=== PATIENT | female | born 1950 | race Caucasian/White ===

== ENCOUNTER 2018-05-09 20:16 | Emergency (ER) | payer MEDICARE ==
[2018-05-09 20:56] VITALS: RESP 18; TEMP 99
--- NOTE | 2018-05-09 21:33 | XR ---
EXAMINATION TYPE: XR shoulder complete RT DATE OF EXAM: 05/09/2018 CLINICAL HISTORY: Right shoulder pain after fall injury. TECHNIQUE: Three views of the right shoulder are obtained. COMPARISON: None. FINDINGS: Demineralization is present. There is age indeterminate displaced fracture middle one third of right clavicle. There is 2.6 cm overlap without callus formation suggesting acute fracture. Acrom ioclavicular joint is maintained with mild narrowing. Glenohumeral joint is preserved. The visualized ribs are intact and unremarkable. Stimulator device overlies right chest ascending right neck. IMPRESSION: There is age indeterminate but suspected acute displaced fracture through the middle one third of right clavicle. Correlate clinically with point tenderness. (Initial encounter closed type posttraumatic fracture)
[2018-05-09] MEDS ORDERED: MORPHINE SULFATE 4 MG/ML SYRINGE IM STA (21:47)
[2018-05-09] MEDS ORDERED: ACET/COD 300 MG/30 MG STARTER PACK 6 TAB BTL PO STA (21:47)
--- NOTE | 2018-05-09 21:49 | ED ---
General Adult HPI <Von Amato - Last Filed: 05/09/18 21:49> - General Source: patient, RN notes reviewed, old records reviewed Mode of arrival: ambulatory Limitations: no limitations <Abhijeet Nash - Last Filed: 05/09/18 23:00> - General Chief complaint: Fall Stated complaint: Fall, poss broken shoulder Time Seen by Provider: 05/09/18 21:13 - History of Present Illness Initial comments: 67-year-old female patient with past medical history of Parkinson's disease presents to ED after sustaining a mechanical fall today. Patient states that she was walking, loss of balance and fell on her right side. Patient reports that she has a shuffling gait that she has poor balance. Patient denies any trauma to head or neck. Patient primary complaint is right shoulder pain. Patient believes that she fractured her clavicle. Patient denies any loss of consciousness. Patient denies any some blood thinners. Patient denies any other complaints. Patient denies chest pain, shortness breath, abdominal pain. Systemic: Pt denies fatigue, fever/chills, rash. Pt denies weakness, night sweats, weight loss. Neuro: Pt denies headache, visual disturbances, syncope or pre-syncope. HEENT: Pt denies ocular discharge or irritation, otalgia, rhinorrhea, pharyngitis or notable lymphadenopathy. Cardiopulmonary: Pt denies chest pain, SOB, heart palpitations, dyspnea on exertion. Abdominal/GI: Pt denies abdominal pain, n/v/d. : Pt denies dysuria, burning w/ urination, frequency/urgency. Denies new onset urinary or bowel incontinence. MSK: Pt denies loss of strength or function in extremities. Neuro: Pt denies new onset weakness, paresthesias. (Abhijeet Nash) - Related Data Allergies Allergy/AdvReac Type Severity Reaction Status Date / Time acetaminophen [From Vicodin] Allergy Vomiting Verified 05/09/18 20:56 hydrocodone [From Vicodin] Allergy Vomiting Verified 05/09/18 20:56 tape Allergy Rash/Hives Uncoded 05/09/18 20:56 Review of Systems ROS Other: All systems not noted in ROS Statement are negative. <Von Amato - Last Filed: 05/09/18 21:49> ROS Other: All systems not noted in ROS Statement are negative. <Abhijeet Nash - Last Filed: 05/09/18 23:00> ROS Statement: Those systems with pertinent positive or pertinent negative responses have been documented in the HPI. Past Medical History Past Medical History: Hypertension Additional Past Medical History / Comment(s): Parkinson. Broken left elbow and right arm. History of Any Multi-Drug Resistant Organisms: None Reported Additional Past Surgical History / Comment(s): Deep brain stiumulation. Toe removal. Past Psychological History: No Psychological Hx Reported Smoking Status: Never smoker Past Alcohol Use History: None Reported Past Drug Use History: None Reported <Abhijeet Nash - Last Filed: 05/09/18 23:00> General Exam <Von Amato - Last Filed: 05/09/18 21:49> Limitations: no limitations <Abhijeet Nash - Last Filed: 05/09/18 23:00> - General Exam Comments Initial Comments: Constitutional: NAD, AOX3, Pt has pleasant affect. HEENT: NC/AT, trachea midline, neck supple, no lymphadenopathy. Posterior pharynx non erythematous, without exudates. External ears appear normal, without discharge. Mucous membranes moist. Eyes PERRLA, EOM intact. There is no scleral icterus. No pallor noted. Cardiopulmonary: RRR, no murmurs, rubs or gallops, no JVD noted. Lungs CTAB in anterior and posterior swartz. No peripheral edema. Abdominal exam: Abdomen soft and non-distended. Abdomen non-tender to palpation in all 4 quadrants. Bowel sounds active in LLQ. No hepatosplenomegaly. No ecchymosis Neuro: CN II-XII intact. No nuchal rigidity. No cervical spinal tenderness. MSK: Mild defect noted in right clavicle. No tenting. Patient has pain and tenderness to right clavicle. Patient limited range of motion right upper extremity secondary to pain. Patient neurovascularly intact, radial pulse +2. Sensation intact. No posterior calf tenderness bilaterally, homans sign negative bilaterally. Posterior tibialis and radial pulse +2 bilaterally. Sensation intact in upper and lower extremities. Full active ROM in upper and lower extremities, 5/5 stregnth. (Abhijeet Nash) Course <LmVon - Last Filed: 05/09/18 21:49> <Abhijeet Nash - Last Filed: 05/09/18 23:00> Vital Signs 05/09/18 20:51 Temperature 99.0 F Pulse Rate 85 Respiratory 18 Rate Blood Pressure 161/53 O2 Sat by Pulse 97 Oximetry - Reevaluation(s) Reevaluation #1: 05/09/18 21:49 PA supervision: I proceeded [id number] evaluation the patient she did fall and sustained a right clavicle fracture. She states she was making cookies at the time. She complains of localized pain to the area. I did review the imaging shows no evidence of a mid right clavicle fracture. Is no sensory motor or vascular deficits however. Patient will be discharged with sling and do agree with the assessment and plan. She will follow-up with her doctor and/ or orthopedics. (Von Amato) Medical Decision Making <Von Amato - Last Filed: 05/09/18 21:49> <Abhijeet Nash - Last Filed: 05/09/18 23:00> - Medical Decision Making 67-year-old female patient with past medical history of Parkinson's disease presents to ED after sustaining a mechanical fall today. Patient states that she was walking, loss of balance and fell on her right side. Patient reports that she has a shuffling gait that she has poor balance. Patient denies any trauma to head or neck. Patient primary complaint is right shoulder pain. Patient believes that she fractured her clavicle. Patient denies any loss of consciousness. Patient denies any some blood thinners. Patient denies any other complaints. Pt VSS. Physical exam displayed: normal neurological exam, mild defect noted in right clavicle. No tenting. Patient has pain and tenderness to right clavicle. Patient limited range of motion right upper extremity secondary to pain. Patient neurovascularly intact, radial pulse +2. Sensation intact. Plain films displayed a fracture to one third of right clavicle. Patient placed in arm sling. Patient to follow with orthopedic surgeon tomorrow. Patient to return to ED if new s/sx develop. Patient not driving home. Case discussed in depth with an patient seen by Dr. Amato. (Abhijeet Nash) Disposition <Von Amato - Last Filed: 05/09/18 21:49> Is patient prescribed a controlled substance at d/c from ED?: No Time of Disposition: 21:49 <Abhijeet Nash - Last Filed: 05/09/18 23:00> Clinical Impression: Clavicle fracture Disposition: HOME SELF-CARE Condition: Stable Instructions (If sedation given, give patient instructions): Clavicle Fracture (ED), Fall Prevention for Children (ED) Additional Instructions: Patient to adhere to previously discussed treatment plan and will take medication(s) as directed. Patient to follow up with PCP in 1-2 days. Patient to return to ED if symptoms do not improve. Please call Dr. Stallworth tomorrow Please wear sling until orthopedic follow up Referrals: Massiel Rios MD [Primary Care Provider] - 1-2 days Leighton Stallworth MD [STAFF PHYSICIAN] - 1-2 days
[2018-05-09 23:24] VITALS: BP 178/81; PULSE 81
== END 2018-05-09 22:40 | disposition home or self-care (01) ==
LOC: EC 20:16
DX: S42.001A Fracture of unspecified part of right clavicle, initial encounter for closed fracture (principal); Z88.5 Allergy status to narcotic agent; Z88.6 Allergy status to analgesic agent; Z91.048 Other nonmedicinal substance allergy status; Z86.69 Personal history of other diseases of the nervous system and sense organs; W19.XXXA Unspecified fall, initial encounter; Y93.G3 Activity, cooking and baking; Y92.000 Kitchen of unspecified non-institutional (private) residence as the place of occurrence of the external cause
CPT/HCPCS: 73030; 99284; 96372; J2270